=== PATIENT | male | born 1995 | race Caucasian/White ===

== ENCOUNTER 2016-07-05 14:34 | Emergency (ER) | payer OTHER ==
[~2016-07-05] VITALS: Ht 177.8 cm; Wt 105.0 kg
[~2016-07-05 14:34] MED LIST: DICL75 PO; ROBA750T3 PO
[2016-07-05 14:35] VITALS: BP 145/80; PULSE 108; RESP 16; TEMP 98.2; O2SAT 95
[2016-07-05 15:55] VITALS: BP 143/90; PULSE 101; RESP 20; TEMP 97.6; O2SAT 96
[2016-07-05] MEDS ORDERED: DIVA250T3 PO (16:16)
--- NOTE | 2016-07-05 18:28 | PD ---
HPI . depression for 1 week Chief Complaint: Psychiatric Symptoms Time Seen by Provider: 18:20 Travel History International Travel<30 days: No Contact w/Intl Traveler<30days: No Traveled to known affect area: No History of Present Illness HPI 21 yr old male with no PMH other than tobaccoism here with c/o depression for 1 week. Patient is a student and [employer] and states he has been somewhat overwhelmed with things going on in his life. He states he has been depressed since he had to deal with his brother getting into a car accident. He says handling the insurance and medical f/u has fallen on his lap and he has been trying his best to deal with it. He initially thought about suicide, but denies any plan. He did have some chest discomfort and went to [facility] clinic where he had EKG and labs. He says he was told everything was ok. At the time of examination, he denies any chest pain, sob, nausea, vomiting, abdominal pain. He is depressed, but denies any suicide ideation or homicide ideation at this time. He says he wants something for anxiety and depression to help him cope with the things going on in his life. He is asking to go home and asks me to bypass labs so that he can leave earlier. He denies any illegal drug use. [facility] Social History Tobacco Use: Yes Substance Use: Yes Allergies-Medications (Allergen,Severity, Reaction): Coded Allergies: No Known Allergies (Unverified , 07/24/15) Reported Meds & Prescriptions Reported Meds & Active Scripts Active Reported Divalproex ER (Divalproex Sodium) 250 Mg Muna 300 Mg PO TID Review of Systems General / Constitutional: No: Fever Eyes: No: Visual changes HENT: No: Headaches Cardiovascular: No: Chest Pain or Discomfort Respiratory: No: Shortness of Breath Gastrointestinal: No: Abdominal Pain Genitourinary: No: Dysuria Musculoskeletal: No: Pain Skin: No Rash Neurologic: No: Weakness Psychiatric: No: Depression Endocrine: No: Polydipsia Hematologic/Lymphatic: No: Easy Bruising Physical Exam Narrative GENERAL: AAO x 3, no acute distress, Well-nourished, well-developed patient. SKIN: Warm and dry. No visible rashes or bruising. HEAD: Normocephalic and atraumatic. EYES: No scleral icterus. No injection or drainage. ENT: No nasal drainage noted. Mucous membranes pink. Airway patent. NECK: Supple, trachea midline. No JVD. CARDIOVASCULAR: Regular rate and rhythm without murmurs, gallops, or rubs. Reproducible chest pain on palpation. RESPIRATORY: Breath sounds equal bilaterally. No accessory muscle use. No rhonchi or rales. GASTROINTESTINAL: Abdomen soft, non-tender, nondistended. EXTREMITIES: No cyanosis or edema. BACK: Nontender without obvious deformity. No CVA tenderness. PSYCH: AAO x 3, flat affect Data Data Last Documented VS Vital Signs Date Time Temp Pulse Resp B/P Pulse Ox O2 Delivery O2 Flow Rate FiO2 07/05/16 15:55 97.6 101 20 143/90 96 Room Air Orders Diet Regular Basic (07/05/16 Dinner) Psych Screen (07/05/16 16:09) Complete Blood Count With Diff (07/05/16 18:11) Comprehensive Metabolic Panel (07/05/16 18:11) Drug Screen, Random Urine (07/05/16 18:11) Electrocardiogram (07/05/16 ) Labs Laboratory Tests Test 07/05/16 07/05/16 18:50 18:55 White Blood Count 14.0 TH/MM3 Red Blood Count 5.41 MIL/MM3 Hemoglobin 15.8 GM/DL Hematocrit 45.8 % Mean Corpuscular Volume 84.6 FL Mean Corpuscular Hemoglobin 29.1 PG Mean Corpuscular Hemoglobin 34.4 % Concent Red Cell Distribution Width 12.9 % Platelet Count 402 TH/MM3 Mean Platelet Volume 7.3 FL Neutrophils (%) (Auto) 71.4 % Lymphocytes (%) (Auto) 19.5 % Monocytes (%) (Auto) 6.2 % Eosinophils (%) (Auto) 2.3 % Basophils (%) (Auto) 0.6 % Neutrophils # (Auto) 10.0 TH/MM3 Lymphocytes # (Auto) 2.7 TH/MM3 Monocytes # (Auto) 0.9 TH/MM3 Eosinophils # (Auto) 0.3 TH/MM3 Basophils # (Auto) 0.1 TH/MM3 CBC Comment DIFF FINAL Differential Comment Sodium Level 139 MEQ/L Potassium Level 3.7 MEQ/L Chloride Level 105 MEQ/L Carbon Dioxide Level 26.2 MEQ/L Anion Gap 8 MEQ/L Blood Urea Nitrogen 10 MG/DL Creatinine 0.71 MG/DL Estimat Glomerular Filtration 141 ML/MIN Rate Random Glucose 74 MG/DL Calcium Level 9.4 MG/DL Total Bilirubin 0.4 MG/DL Aspartate Amino Transf 30 U/L (AST/SGOT) Alanine Aminotransferase 100 U/L (ALT/SGPT) Alkaline Phosphatase 109 U/L Total Protein 8.1 GM/DL Albumin 4.5 GM/DL Urine Opiates Screen NEG Urine Barbiturates Screen NEG Urine Amphetamines Screen NEG Urine Benzodiazepines Screen NEG Urine Cocaine Screen NEG Urine Cannabinoids Screen POS MDM Medical Decision Making Medical Screen Exam Complete: Yes Emergency Medical Condition: Yes Medical Record Reviewed: Yes Differential Diagnosis depression, anxiety, TOPHER, bipolar disorder, less likely schizophrenia Narrative Course 21 yr old male with no PMH other than tobaccoism here with c/o depression for 1 week. Patient is a student and [employer] and states he has been somewhat overwhelmed with things going on in his life. He states he has been depressed since he had to deal with his brother getting into a car accident. He says handling the insurance and medical f/u has fallen on his lap and he has been trying his best to deal with it. He initially thought about suicide, but denies any plan. He did have some chest discomfort and went to [employer] clinic where he had EKG and labs. He says he was told everything was ok. At the time of examination, he denies any chest pain, sob, nausea, vomiting, abdominal pain. He is depressed, but denies any suicide ideation or homicide ideation at this time. He says he wants something for anxiety and depression to help him cope with the things going on in his life. He is asking to go home and asks me to bypass labs so that he can leave earlier. Patient seen and examined. Case Discussed with Dr. Dixon. Discussed that smoking increases risk of CAD, lung cancer and other detrimental health effects. Labs and EKG ordered. If normal will medically clear. EKG is normal. CBC/BMP fairly unremarkable. EKG normal. tox screen + marijuana patient has been given information for [facility] for f/u. Medically cleared. F/U with recommendations from Psych Diagnosis Primary Impression: Depression Qualified Code: F32.9 - Depression, unspecified depression type Condition: Stable Sunshine Bolanos Jul 05, 2016 18:28
[2016-07-05 19:31] LABS: BASOPHIL # 0.1 TH/MM3 (0-0.2); BASOPHIL % 0.6 % (0.0-2.0); EOSINOPHIL # 0.3 TH/MM3 (0-0.4); EOSINOPHIL % 2.3 % (0.0-4.0); HEMATOCRIT 45.8 % (39.0-51.0); HEMO FLAGS DIFF FINAL; LYMPH % 19.5 % (9.0-44.0); LYMPHOCYTE # 2.7 TH/MM3 (1.0-4.8); MEAN CELL VOLUME 84.6 FL (80.0-100.0); MEAN CORPUSCULAR HEMOGLOBIN 29.1 PG (27.0-34.0); MEAN CORPUSCULAR HGB CONC 34.4 % (32.0-36.0); MONO % 6.2 % (0.0-8.0); NEUT % 71.4 % (16.0-70.0); PLATELET COUNT 402 TH/MM3 (150-450); RED BLOOD COUNT 5.41 MIL/MM3 (4.50-5.90); RED CELL DISTRIBUTION WIDTH 12.9 % (11.6-17.2)
[2016-07-05 19:40] LABS: AMPHETAMINE, URINE NEG (NEG); BARBITURATES, URINE NEG (NEG); COCAINE, URINE NEG (NEG)
--- NOTE | 2016-07-05 19:48 | PD ---
Data Data Last Documented VS Vital Signs Date Time Temp Pulse Resp B/P Pulse Ox O2 Delivery O2 Flow Rate FiO2 07/05/16 15:55 97.6 101 20 143/90 96 Room Air Orders Diet Regular Basic (07/05/16 Dinner) Psych Screen (07/05/16 16:09) Complete Blood Count With Diff (07/05/16 18:11) Comprehensive Metabolic Panel (07/05/16 18:11) Drug Screen, Random Urine (07/05/16 18:11) Electrocardiogram (07/05/16 ) Labs Laboratory Tests Test 07/05/16 07/05/16 18:50 18:55 White Blood Count 14.0 TH/MM3 Red Blood Count 5.41 MIL/MM3 Hemoglobin 15.8 GM/DL Hematocrit 45.8 % Mean Corpuscular Volume 84.6 FL Mean Corpuscular Hemoglobin 29.1 PG Mean Corpuscular Hemoglobin 34.4 % Concent Red Cell Distribution Width 12.9 % Platelet Count 402 TH/MM3 Mean Platelet Volume 7.3 FL Neutrophils (%) (Auto) 71.4 % Lymphocytes (%) (Auto) 19.5 % Monocytes (%) (Auto) 6.2 % Eosinophils (%) (Auto) 2.3 % Basophils (%) (Auto) 0.6 % Neutrophils # (Auto) 10.0 TH/MM3 Lymphocytes # (Auto) 2.7 TH/MM3 Monocytes # (Auto) 0.9 TH/MM3 Eosinophils # (Auto) 0.3 TH/MM3 Basophils # (Auto) 0.1 TH/MM3 CBC Comment DIFF FINAL Differential Comment Sodium Level 139 MEQ/L Potassium Level 3.7 MEQ/L Chloride Level 105 MEQ/L Carbon Dioxide Level 26.2 MEQ/L Anion Gap 8 MEQ/L Blood Urea Nitrogen 10 MG/DL Creatinine 0.71 MG/DL Estimat Glomerular Filtration 141 ML/MIN Rate Random Glucose 74 MG/DL Calcium Level 9.4 MG/DL Total Bilirubin 0.4 MG/DL Aspartate Amino Transf 30 U/L (AST/SGOT) Alanine Aminotransferase 100 U/L (ALT/SGPT) Alkaline Phosphatase 109 U/L Total Protein 8.1 GM/DL Albumin 4.5 GM/DL Urine Opiates Screen NEG Urine Barbiturates Screen NEG Urine Amphetamines Screen NEG Urine Benzodiazepines Screen NEG Urine Cocaine Screen NEG Urine Cannabinoids Screen POS MDM Supervised Visit with NAOMI: Yes Narrative Course I, Dr. Dixon, have reviewed the advance practice practitioner's documentation and am in agreement, met with the patient face to face, made the diagnosis, and the medical decision making was done by me. *My assessment and Findings: Patient is a 21-year-old male presents emergency department with depression, denies any suicidal homicidal ideation. He is here under a voluntary commitment. Medically he has complaints of very atypical chest pain I reviewed his EKG and is within normal limits. He is stable for psychiatric evaluation and disposition. Diagnosis Primary Impression: Depression Qualified Code: F32.9 - Depression, unspecified depression type Condition: Stable Maxi Dixon MD Jul 05, 2016 19:48
[2016-07-05 19:51] LABS: ANION GAP 8 MEQ/L (5-15); AST (GOT) 30 U/L (15-39); BICARBONATE 26.2 MEQ/L (21.0-32.0); BLOOD UREA NITROGEN 10 MG/DL (7-18); CHLORIDE 105 MEQ/L (98-107); GLOMERULAR FILTRATION RATE 141 ML/MIN (>89); POTASSIUM 3.7 MEQ/L (3.5-5.1); SODIUM (NA) 139 MEQ/L (136-145)
[2016-07-05 19:54] LABS: ALKALINE PHOSPHATASE 109 U/L (45-117); ALT (GPT) 100 U/L (9-52); TOTAL BILIRUBIN ADULT 0.4 MG/DL (0.2-1.0)
--- NOTE | 2016-07-06 16:41 | EKG ---
Date Performed: 07/05/2016 Time Performed: 19:40:25 PTAGE: 21 years EKG: Sinus rhythm NORMAL ECG NO PREVIOUS TRACING DOCTOR: Dmitry Ruff Interpretating Date/Time 07/06/2016 16:39:41
== END 2016-07-05 20:59 | disposition home or self-care (01) ==
LOC: NEPJ 14:34
DX: F32.9 Major depressive disorder, single episode, unspecified (principal); Z72.0 Tobacco use; F12.90 Cannabis use, unspecified, uncomplicated
CPT/HCPCS: 80053; 80307; 85025; 93005; 99284

== ENCOUNTER 2017-10-04 17:16 | Inpatient (IN) | END 2017-10-07 11:42 | disposition home or self-care (01) | DRG 872 | DX: A41.9 Sepsis, unspecified organism (principal); F32.9 Major depressive disorder, single episode, unspecified; K52.9 Noninfective gastroenteritis and colitis, unspecified; R65.20 Severe sepsis without septic shock; B34.9 Viral infection, unspecified; F17.210 Nicotine dependence, cigarettes, uncomplicated; F12.90 Cannabis use, unspecified, uncomplicated; K44.9 Diaphragmatic hernia without obstruction or gangrene ==